=== PATIENT | female | born 1990 | race Caucasian/White ===

== ENCOUNTER 2017-12-31 09:36 | Outpatient (CLI) | payer BC, MEDICAID ==
[~2017-12-31] VITALS: Ht 157.5 cm; Wt 81.8 kg
[~2017-12-31 09:36] MED LIST: IBUP-1222 PO; IBUP200T49 PO; OXYC-302 PO; [UNRECOGNIZED DRUG - OTHER] PO
[2017-12-31 09:54] VITALS: BP 117/64
== END 2017-12-31 10:52 | disposition home or self-care (01) ==
LOC: LDOP 09:36
PROVIDERS: ATTEND Obstetrics & Gynecology Maternal & Fetal Medicine
DX: O26.892 Other specified pregnancy related conditions, second trimester (principal); R06.02 Shortness of breath; O99.342 Other mental disorders complicating pregnancy, second trimester; F41.9 Anxiety disorder, unspecified; Z3A.20 20 weeks gestation of pregnancy
CPT/HCPCS: 59025; 99201; G0463

== ENCOUNTER 2017-12-31 11:02 | Emergency (ER) | payer BC, MEDICAID ==
[~2017-12-31] VITALS: Ht 157.5 cm; Wt 81.0 kg
[2017-12-31] MEDS ORDERED: PLEASE ENTER HEIGHT AND WEIGHT MC SCH (11:19)
[2017-12-31] MEDS ORDERED: ALBUTEROL SULFATE 2.5 MG/3 ML NPPB ONE (11:30)
[2017-12-31] MEDS ORDERED: ALBUTEROL/IPRATROPIUM 2.5MG/0.5MG, 3 ML ONE (11:46)
[2017-12-31 12:15] VITALS: BP 127/55
== END 2017-12-31 12:29 | disposition home or self-care (01) ==
LOC: ED 12:23
DX: O99.513 Diseases of the respiratory system complicating pregnancy, third trimester (principal); Z3A.29 29 weeks gestation of pregnancy; J45.31 Mild persistent asthma with (acute) exacerbation
CPT/HCPCS: 93005; 94640; 99283; J7613

== ENCOUNTER 2018-01-30 22:48 | Observation (INO) | payer MEDICAID ==
[~2018-01-30] VITALS: Ht 157.5 cm; Wt 83.0 kg
== END 2018-01-31 01:10 | disposition home or self-care (01) ==
LOC: LDOP 22:48 → LDIP 23:07
PROVIDERS: ADMIT Obstetrics & Gynecology Maternal & Fetal Medicine; ATTEND Obstetrics & Gynecology Maternal & Fetal Medicine
DX: O9A.213 Injury, poisoning and certain other consequences of external causes complicating pregnancy, third trimester (principal); O62.9 Abnormality of forces of labor, unspecified; O99.513 Diseases of the respiratory system complicating pregnancy, third trimester; J45.909 Unspecified asthma, uncomplicated; O99.343 Other mental disorders complicating pregnancy, third trimester; F32.9 Major depressive disorder, single episode, unspecified; F41.9 Anxiety disorder, unspecified; G40.909 Epilepsy, unspecified, not intractable, without status epilepticus; Z3A.33 33 weeks gestation of pregnancy; W50.0XXA Accidental hit or strike by another person, initial encounter; Y93.89 Activity, other specified; Y92.89 Other specified places as the place of occurrence of the external cause; Y99.8 Other external cause status
CPT/HCPCS: 59025; G0378

== ENCOUNTER 2018-02-19 10:33 | Observation (INO) | payer MEDICAID ==
[~2018-02-19] VITALS: Ht 157.5 cm; Wt 85.9 kg
[2018-02-19 10:55] VITALS: BP 129/83
[2018-02-19 10:57] LABS: MICROSCOPIC NOT IND
[2018-02-19 11:30] LABS: BASOPHILS # (AUTO) 0.03 x10^3/uL (0-0.1); BASOPHILS % (AUTO) 0 % (0-1); EOSINOPHILS # (AUTO) 0.03 x10^3/uL (0-0.4); EOSINOPHILS % (AUTO) 0 % (1-7); LYMPHOCYTES # (AUTO) 1.89 x10^3/uL (1-3.4); LYMPHOCYTES % (AUTO) 21 % (22-44); MD NO; MEAN CORPUSCULAR HEMOGLOBIN 27.8 pg (27.0-34.8); MEAN CORPUSCULAR HGB CONC 33.1 g/dL (32.4-35.8); MEAN CORPUSCULAR VOLUME 83.9 fL (80-100); MEAN PLATELET VOLUME 8.7 fL (7.4-10.4); MONOCYTES # (AUTO) 0.37 x10^3/uL (0.2-0.8); MONOCYTES % (AUTO) 4 % (2-9); NEUTROPHILS # (AUTO) 6.56 x10^3/uL (1.8-6.8); NEUTROPHILS % (AUTO) 74 % (42-75); PLATELET COUNT 219 x10^3/uL (130-400); RED BLOOD COUNT 3.11 x10^6/uL (3.82-5.3); RED CELL DISTRIBUTION WIDTH 14.2 % (9.6-15.2)
[2018-02-19 11:42] LABS: CALCIUM 8.4 mg/dL (8.5-10.1); CHLORIDE 108 mmol/L (98-107)
[2018-02-19 11:51] LABS: ALANINE AMINOTRANSFERASE 13 U/L (12-78); ALBUMIN 2.3 g/dL (3.4-5.0); ALKALINE PHOSPHATASE 111 U/L (45-117); ANION GAP 9 mmol/L (5-15); BILIRUBIN,TOTAL 0.2 mg/dL (0.2-1.0); CREATININE 0.68 mg/dL (0.55-1.02); TOTAL PROTEIN 5.8 g/dL (6.4-8.2)
[2018-02-19 11:53] LABS: BILIRUBIN, DIRECT < 0.1 mg/dL (0.1-0.2)
[2018-02-19] MEDS ORDERED: IRON SUCROSE COMPLEX 100MG/5ML IV SCH (14:00)
[2018-02-20] MEDS ORDERED: IRON SUCROSE COMPLEX 100MG/5ML IV SCH (09:00)
== END 2018-02-19 14:58 | disposition home or self-care (01) ==
LOC: LDOP 10:33 → LDIP 12:58
PROVIDERS: ADMIT Obstetrics & Gynecology Maternal & Fetal Medicine; ATTEND Obstetrics & Gynecology Maternal & Fetal Medicine
DX: O13.3 Gestational [pregnancy-induced] hypertension without significant proteinuria, third trimester (principal); Z3A.36 36 weeks gestation of pregnancy
CPT/HCPCS: 36415; 59025; 80053; 81003; 82248; 82570; 82728; 84156; 84550; 85025; G0378; 96360; 96374

== ENCOUNTER 2018-02-20 13:16 | Outpatient (CLI) | payer MEDICAID ==
[2018-02-20] MEDS ORDERED: IRON SUCROSE COMPLEX 100MG/5ML IV STA (13:19)
== END 2018-02-20 14:20 | disposition home or self-care (01) ==
LOC: LDOP 13:16
PROVIDERS: ATTEND Obstetrics & Gynecology Maternal & Fetal Medicine
DX: O13.3 Gestational [pregnancy-induced] hypertension without significant proteinuria, third trimester (principal); Z3A.36 36 weeks gestation of pregnancy
CPT/HCPCS: 59025; 96374; 99211; J1756; G0463

== ENCOUNTER 2018-02-21 12:51 | Outpatient (CLI) | payer MEDICAID ==
[2018-02-21] MEDS ORDERED: IRON SUCROSE COMPLEX 100MG/5ML IV STA (12:52)
[2018-02-21] MEDS ORDERED: SODIUM CHLORIDE FLUSH 3ML SYRINGE IVF SCH (21:00)
== END 2018-02-21 14:00 | disposition home or self-care (01) ==
LOC: LDOP 12:51
PROVIDERS: ATTEND Obstetrics & Gynecology Maternal & Fetal Medicine
DX: O13.3 Gestational [pregnancy-induced] hypertension without significant proteinuria, third trimester (principal); Z3A.36 36 weeks gestation of pregnancy
CPT/HCPCS: 59025; 96374; 99211; J1756; G0463

== ENCOUNTER 2018-02-22 13:30 | Outpatient (CLI) | payer MEDICAID ==
[2018-02-22] MEDS ORDERED: SODIUM CHLORIDE FLUSH 3ML SYRINGE IVF SCH (14:00)
[2018-02-22] MEDS ORDERED: IRON SUCROSE COMPLEX 100MG/5ML IV ONE (14:00)
[2018-02-22 14:20] VITALS: BP 129/73
== END 2018-02-22 14:30 | disposition home or self-care (01) ==
LOC: LDOP 13:30
PROVIDERS: ATTEND Obstetrics & Gynecology Maternal & Fetal Medicine
DX: O26.893 Other specified pregnancy related conditions, third trimester (principal); T80.90XA Unspecified complication following infusion and therapeutic injection, initial encounter; Z3A.37 37 weeks gestation of pregnancy
CPT/HCPCS: 59025; 96374; 99211; J1756; G0463

== ENCOUNTER 2018-02-23 12:49 | Outpatient (CLI) | payer MEDICAID ==
[~2018-02-23] VITALS: Ht 157.5 cm; Wt 84.5 kg
[2018-02-23 12:57] VITALS: BP 134/81
[2018-02-23] MEDS ORDERED: IRON SUCROSE COMPLEX 100MG/5ML IV ONE (13:00)
== END 2018-02-23 13:56 | disposition home or self-care (01) ==
LOC: LDOP 12:49
PROVIDERS: ATTEND Obstetrics & Gynecology Maternal & Fetal Medicine
DX: O26.893 Other specified pregnancy related conditions, third trimester (principal); Z3A.28 28 weeks gestation of pregnancy
CPT/HCPCS: 59025; 96374; 99211; J1756; G0463

== ENCOUNTER 2018-03-08 01:29 | Outpatient (CLI) | payer MEDICAID ==
[~2018-03-08] VITALS: Ht 157.5 cm; Wt 84.0 kg
[2018-03-08 02:06] VITALS: BP 135/93
[2018-03-08] MEDS ORDERED: NEWBORN KIT ONE ×3 (03:33)
[2018-03-08] MEDS ORDERED: LIDOCAINE/PF 1%, 30ML ONE (03:33)
[2018-03-08] MEDS ORDERED: OXYTOCIN 30U/ 0.9% NaCL 500ML 0 ML ONE (03:33)
[2018-03-08] MEDS ORDERED: MISOPROSTOL 200 MCG TABLET ONE (03:33)
[2018-03-08] MEDS ORDERED: MEPERIDINE/PF 50 MG/ML IM PRN (04:55)
[2018-03-08] MEDS ORDERED: MEPERIDINE/PF 50 MG/ML ONE (04:59)
== END 2018-03-08 05:10 | disposition home or self-care (01) ==
LOC: LDOP 01:29
PROVIDERS: ATTEND Obstetrics & Gynecology Maternal & Fetal Medicine
DX: O60.00 Preterm labor without delivery, unspecified trimester (principal)
CPT/HCPCS: 59025; 96372; 99211; J2175; G0463

== ENCOUNTER 2018-03-13 07:19 | Inpatient (IN) | payer MEDICAID ==
[~2018-03-13] VITALS: Ht 154.9 cm; Wt 85.0 kg
[2018-03-13 07:20] VITALS: BP 134/75
[2018-03-13] MEDS ORDERED: LIDOCAINE/PF 1%, 30ML ONE (07:41)
[2018-03-13] MEDS ORDERED: NEWBORN KIT ONE ×2 (07:41→11:47)
[2018-03-13] MEDS ORDERED: OXYTOCIN 30U/ 0.9% NaCL 500ML 500 ML ONE ×2 (07:41→16:48)
[2018-03-13] MEDS ORDERED: MISOPROSTOL 200 MCG TABLET ONE (07:41)
[2018-03-13] MEDS ORDERED: OXYTOCIN 30U/ 0.9% NaCL 500ML 500 ML IV PRN (07:49)
[2018-03-13] MEDS ORDERED: LACTATED RINGERS 1,000 ML IV SCH ×3 (07:49→12:54)
[2018-03-13] MEDS ORDERED: D5%-LACTATED RINGERS 1,000 ML IV SCH (07:49)
[2018-03-13] MEDS ORDERED: OXYTOCIN 30U/ 0.9% NaCL 500ML 500 ML IV ONE (07:49)
[2018-03-13] MEDS ORDERED: FENTANYL PF 100 MCG/2ML IVPush PRN (08:00)
[2018-03-13] MEDS ORDERED: FENTANYL PF 100 MCG/2ML IV PRN (08:00)
[2018-03-13 08:18] LABS: BASOPHILS # (AUTO) 0.02 x10^3/uL (0-0.1); BASOPHILS % (AUTO) 0 % (0-1); EOSINOPHILS # (AUTO) 0.01 x10^3/uL (0-0.4); EOSINOPHILS % (AUTO) 0 % (1-7); LYMPHOCYTES # (AUTO) 1.85 x10^3/uL (1-3.4); LYMPHOCYTES % (AUTO) 28 % (22-44); MD NO; MEAN CORPUSCULAR HEMOGLOBIN 29.2 pg (27.0-34.8); MEAN CORPUSCULAR HGB CONC 33.4 g/dL (32.4-35.8); MEAN CORPUSCULAR VOLUME 87.6 fL (80-100); MEAN PLATELET VOLUME 9.2 fL (7.4-10.4); MONOCYTES % (AUTO) 5 % (2-9); NEUTROPHILS # (AUTO) 4.37 x10^3/uL (1.8-6.8); NEUTROPHILS % (AUTO) 67 % (42-75); PLATELET COUNT 161 x10^3/uL (130-400); RED BLOOD COUNT 3.62 x10^6/uL (3.82-5.3); RED CELL DISTRIBUTION WIDTH 20.7 % (9.6-15.2)
[2018-03-13] MEDS ORDERED: ONDANSETRON 2MG/ML, 2ML ONE ×2 (08:18→14:17)
[2018-03-13] MEDS: ONDANSETRON 2MG/ML, 2ML IVPush PRN ×2 (08:25→14:19)
[2018-03-13] MEDS ORDERED: FENTANYL/BUPIV./NS/PF 250 ML EPIDCONT SCH ×2 (08:56→12:54)
[2018-03-13] MEDS ORDERED: LACTATED RINGERS 1,000 ML IVBOLUS PRN ×2 (09:00→13:00)
[2018-03-13] MEDS ORDERED: PLEASE ENTER HEIGHT AND WEIGHT MC SCH (09:30)
[2018-03-13] MEDS ORDERED: FENTANYL PF 500 MCG, BUPIVACAINE/PF 0.5%, 30ML 62.5 ML in SODIUM CHLORIDE 0.9% 177.5 ML EPIDCONT SCH ×3 (10:00→13:30)
[2018-03-13] MEDS ORDERED: CLINDAMYCIN PMX 900MG/50ML 50 ML ONE (11:46)
[2018-03-13] MEDS ORDERED: BUPIVACAINE 0.25% ONE (12:28)
[2018-03-13] MEDS ORDERED: CLINDAMYCIN 150 MG/ML, 6ML IVPB ONE (13:00)
[2018-03-13] MEDS ORDERED: EPHEDRINE 50 MG/ML, 1ML IVPush PRN (13:00)
[2018-03-13] MEDS ORDERED: CLINDAMYCIN PMX 900MG/50ML 50 ML IVPB ONE (13:00)
[2018-03-13] MEDS ORDERED: OXYcodone/APAP 5/325MG TABLET ONE (16:48)
[2018-03-13] MEDS ORDERED: IBUPROFEN 600 MG TABLET ONE (16:48)
[2018-03-13] MEDS ORDERED: OXYTOCIN 30U/ 0.9% NaCL 500ML 500 ML IV SCH ×2 (16:52→18:02)
[2018-03-13] MEDS ORDERED: IBUPROFEN 600 MG TABLET PO PRN (17:00)
[2018-03-13] MEDS ORDERED: DOCUSATE 100 MG CAPSULE PO PRN (17:00)
[2018-03-13] MEDS ORDERED: ONDANSETRON 2MG/ML, 2ML IV PRN (17:00)
[2018-03-13] MEDS: OXYcodone/APAP 5/325MG TABLET PO PRN ×2 (18:02→22:20)
[2018-03-13 18:15] VITALS: BP 136/87
[2018-03-13] MEDS ORDERED: MEASLES,MUMPS&RUBELLA VACC/PF 0.5 ML SQ-VACC PRN (18:30)
[2018-03-13] MEDS ORDERED: RHOGAM FROM BLOOD BANK 1 NOTE EA IM/IV ONE (18:30)
[2018-03-13] MEDS ORDERED: METHYLERGONOVINE 0.2 MG/ML IM PRN (18:30)
[2018-03-13] MEDS ORDERED: MISOPROSTOL 200 MCG TABLET PR PRN (18:30)
[2018-03-13] MEDS ORDERED: DIPH,PERTUSS(ACELL),TET VAC/PF NC IM-VACC PRN (18:30)
[2018-03-13] MEDS ORDERED: CARBOPROST TROMETHAMINE 250 MCG/ML, 1ML IM PRN (18:30)
[2018-03-13 19:20] VITALS: BP 120/72
[2018-03-14 00:30] VITALS: BP 120/78
[2018-03-14] MEDS: IBUPROFEN 600 MG TABLET PO PRN ×4 (00:35→21:19)
[2018-03-14] MEDS: OXYcodone/APAP 5/325MG TABLET PO PRN ×5 (02:35→22:19)
[2018-03-14 03:09] VITALS: BP 107/64
[2018-03-14 05:35] LABS: BASOPHILS # (AUTO) 0.03 x10^3/uL (0-0.1); BASOPHILS % (AUTO) 0 % (0-1); EOSINOPHILS # (AUTO) 0.03 x10^3/uL (0-0.4); EOSINOPHILS % (AUTO) 0 % (1-7); LYMPHOCYTES % (AUTO) 21 % (22-44); MD NO; MEAN CORPUSCULAR HEMOGLOBIN 29.9 pg (27.0-34.8); MEAN CORPUSCULAR HGB CONC 33.6 g/dL (32.4-35.8); MEAN CORPUSCULAR VOLUME 88.9 fL (80-100); MEAN PLATELET VOLUME 9.9 fL (7.4-10.4); MONOCYTES # (AUTO) 0.45 x10^3/uL (0.2-0.8); MONOCYTES % (AUTO) 5 % (2-9); NEUTROPHILS # (AUTO) 6.89 x10^3/uL (1.8-6.8); NEUTROPHILS % (AUTO) 74 % (42-75); PLATELET COUNT 140 x10^3/uL (130-400)
[2018-03-14] MEDS: DOCUSATE 100 MG CAPSULE PO PRN ×2 (07:40→21:19)
[2018-03-14] MEDS: PRENATAL VIT/IRON/FA 1 EACH TABLET PO SCH (07:43)
[2018-03-14 07:45] VITALS: BP 113/74
[2018-03-14] MEDS ORDERED: PRENATAL VIT/IRON/FA 1 EACH TABLET PO SCH (09:00)
[2018-03-14 12:00] VITALS: BP 115/73
[2018-03-14 20:00] VITALS: BP 143/94
[2018-03-15] MEDS: OXYcodone/APAP 5/325MG TABLET PO PRN ×3 (02:25→11:19)
[2018-03-15] MEDS: IBUPROFEN 600 MG TABLET PO PRN ×2 (03:36→09:41)
[2018-03-15 07:50] VITALS: BP 125/83
[2018-03-15] MEDS: DOCUSATE 100 MG CAPSULE PO PRN (09:41)
[2018-03-15] MEDS: PRENATAL VIT/IRON/FA 1 EACH TABLET PO SCH (09:41)
[2018-03-15] MEDS ORDERED: HYDR25SU21 RC (12:40)
== END 2018-03-15 13:25 | disposition home or self-care (01) | DRG 807 ==
LOC: LDIP 07:19 → 2NW 18:06
PROVIDERS: ADMIT Obstetrics & Gynecology Maternal & Fetal Medicine; ATTEND Obstetrics & Gynecology Maternal & Fetal Medicine
PROC: 10E0XZZ Delivery of Products of Conception, External Approach (ICD-10-PCS; principal; 2018-03-13)
PROC: 3E0R3BZ Introduction of Anesthetic Agent into Spinal Canal, Percutaneous Approach (ICD-10-PCS; 2018-03-13)
PROC: 00HU33Z Insertion of Infusion Device into Spinal Canal, Percutaneous Approach (ICD-10-PCS; 2018-03-13)
PROC: 10907ZC Drainage of Amniotic Fluid, Therapeutic from Products of Conception, Via Natural or Artificial Opening (ICD-10-PCS; 2018-03-13)
PROC: 3E033VJ Introduction of Other Hormone into Peripheral Vein, Percutaneous Approach (ICD-10-PCS; 2018-03-13)
DX: O99.824 Streptococcus B carrier state complicating childbirth (principal); Z37.0 Single live birth; O99.02 Anemia complicating childbirth; D64.9 Anemia, unspecified; Z3A.39 39 weeks gestation of pregnancy; Z88.0 Allergy status to penicillin; Z88.5 Allergy status to narcotic agent
CPT/HCPCS: 36415; 85025; 86850; 86900; 90715; G0378; J2405; J2590; J7120